=== PATIENT | female | born 1985 | race Caucasian/White ===

== ENCOUNTER 2020-04-12 23:58 | Emergency (ER) | payer OTHER ==
[~2020-04-12] VITALS: Ht 165.1 cm; Wt 72.6 kg
[2020-04-13 00:11] VITALS: BP 111/77
--- NOTE | 2020-04-13 00:26 | Emergency Room Report ---
History of Present Illness General Chief Complaint: Eye Problems Source: Patient Present Illness HPI Patient is a 34-year-old female presents after increased right-sided eye pain and throbbing headache. Gradual onset of symptoms. Patient had onset of symptoms this morning. Prior history of migraine headaches. States this is somewhat different. Denies any visual changes. Reports having some eyelid swelling. States she takes medications for bipolar disorder. Denies any fever. Denies any recent trauma. Reports having taken ibuprofen prior to arrival. 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 Patient History Past Medical History: see triage record Last Menstrual Period: 3 DAYS AGO Now: No : 0 Para: 0 Reviewed Nursing Documentation: PMH: Agreed; PSxH: Agreed Nursing Documentation-PMH Past Medical History: No Stated History Review of Systems All Other Systems: negative except mentioned in HPI Physical Exam Vital Signs Date Time Temp Pulse Resp B/P (MAP) Pulse Ox O2 Delivery O2 Flow Rate FiO2 04/13/20 00:04 98.8 91 18 111/77 (88) 99 Room Air Sp02 EP Interpretation: reviewed, normal General Appearance: normal inspection, well appearing, no apparent distress, alert, GCS 15 Head: atraumatic Eyes: bilateral eye normal inspection, bilateral eye PERRL, bilateral eye EOMI ENT: normal ENT inspection, hearing grossly normal, normal voice Neck: normal inspection, full range of motion, supple, no bony tend Respiratory: normal inspection, lungs clear, normal breath sounds, no respiratory distress, no retraction, no wheezing Cardiovascular #1: regular rate, rhythm, no edema Gastrointestinal: normal inspection, normal bowel sounds, non tender, soft, no guarding, no hernia Genitourinary: no CVA tenderness Musculoskeletal: normal inspection, back normal, normal range of motion Neurologic: alert, motor strength/tone normal, 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 Differential diagnosis include was not limited to migraine headache, subarachnoid hemorrhage , conjunctivitis, among others. CT imaging was ordered due to patient's change in headache. She was also given medications for treatment of allergy to right eye swelling. Does not appear to have any evidence of conjunctival erythema or abnormal pupillary status. CT imaging was ordered and showed no evidence of acute intracranial pathology. Patient given prescription for topical antibiotics as well as medication for headache. She is advised to follow-up with her primary care physician for recheck. Advised to return if worse. The patient is advised to follow up with primary care doctor in 1-2 days. Patient is advised to return if any worsening condition or if any changes in status that are concerning. This report is dictated with [employer] dish carrier software which may occasionally lead to discrepancies related to use of this software. Labs Test 04/13/20 02:10 Urine Color Pale yellow Urine Appearance Clear Urine pH 7 (4.5-8.0) Urine Specific Daniel 1.005 (1.005-1.035) Urine Protein Negative (NEGATIVE) Urine Glucose (UA) Negative (NEGATIVE) Urine Ketones Negative (NEGATIVE) Urine Blood Negative (NEGATIVE) Urine Nitrite Negative (NEGATIVE) Urine Bilirubin Negative (NEGATIVE) Urine Urobilinogen Normal MG/DL (0.0-1.0) Urine Leukocyte Esterase Negative (NEGATIVE) Urine HCG, Qualitative Negative (NEGATIVE) Last Vital Signs Date Time Temp Pulse Resp B/P (MAP) Pulse Ox O2 Delivery O2 Flow Rate FiO2 04/13/20 00:11 98.8 91 18 111/77 99 Room Air Status: improved Disposition: HOME, SELF-CARE Condition: Stable Scripts Acetamin/Butalbital/Caffeine* (FIORICET*) 1 Ea Tab 1 TAB ORAL Q6H, #15 TAB 0 Refills Prov: Nakul Chapa MD 04/13/20 Gentamicin Sulfate* (GENTAK*) 5 Ml Drops 1 DROP RIGHT EYE Q4H, #1 DROP 0 Refills Prov: Nakul Chapa MD 04/13/20 Referrals: [facility]ERR[facility] (PCP) Nakul Chapa MD Apr 13, 2020 00:26
[2020-04-13] MEDS ORDERED: Metoclopramide 10mg/2ml Inj IVP ONE (00:30)
[2020-04-13] MEDS ORDERED: DiphenhydrAMINE 50mg/ml Inj IVP ONE (00:30)
--- NOTE | 2020-04-13 02:20 | Diagnostic Imaging Report ---
EXAM: CT Head Without Intravenous Contrast CLINICAL HISTORY: Patient is a 34-year-old female presents after increased right-sided eye pain and throbbing headache. Gradual onset of symptoms. Patient had onset of symptoms this morning. Prior history of migraine headaches. States this is somewhat different. Denies any visual changes. Reports having some eyelid swelling. States she takes medications for bipolar disorder. Denies any fever. Denies any recent trauma. Reports having taken ibuprofen prior to arrival. TECHNIQUE: Axial computed tomography images of the head/brain without intravenous contrast. CTDI is 53.4 mGy and DLP is 1205.8 mGy-cm. One or more of the following dose reduction techniques were used: automated exposure control, adjustment of the mA and/or kV according to patient size, use of iterative reconstruction technique. Coronal reformatted images were created and reviewed. COMPARISON: No relevant prior studies available. FINDINGS: Brain: Unremarkable. No hemorrhage. No significant white matter disease. No edema. Ventricles: Unremarkable. No ventriculomegaly. Bones/joints: Unremarkable. No acute fracture. Soft tissues: Unremarkable. Sinuses: Unremarkable as visualized. No acute sinusitis. Mastoid air cells: Unremarkable as visualized. No mastoid effusion. IMPRESSION: Normal head/brain CT.
[2020-04-13] MEDS ORDERED: FIORICET1 EA ORAL (02:26)
[2020-04-13] MEDS ORDERED: GENTAK5 ML RIGHT EYE (02:26)
[2020-04-13 02:46] LABS: APPEARANCE,URINE CLEAR; BILIRUBIN, URINE NEGATIVE (NEGATIVE); COLOR,URINE PALE YELLOW; GLUCOSE, URINE (UA) NEGATIVE (NEGATIVE); KETONES,URINE NEGATIVE (NEGATIVE); LEUKOCYTE ESTERASE ,URINE NEGATIVE (NEGATIVE); NITRITE,URINE NEGATIVE (NEGATIVE); PH,URINE 7 (4.5-8.0); PROTEIN,URINE NEGATIVE (NEGATIVE); UROBILINOGEN,URINE NORMAL MG/DL (0.0-1.0)
[2020-04-13 03:05] VITALS: BP 116/80
== END 2020-04-13 03:05 | disposition home or self-care (01) ==
LOC: EMR 04-13 00:20
DX: G43.909 Migraine, unspecified, not intractable, without status migrainosus (principal); H57.9 Unspecified disorder of eye and adnexa
CPT/HCPCS: 70450; 81003; 81025; 96374; 96375; J1200; J2765; Z7502; 99284